=== PATIENT | female | born 1995 | race African-American/Black ===

== ENCOUNTER 2023-12-09 14:09 | Emergency (ER) | payer OTHER, SELFPAY ==
[2023-12-09 14:11] VITALS: BP 138/83; PULSE 88; RESP 18; TEMP 36.5; O2SAT 100
[2023-12-09 14:41] VITALS: BP 148/82; PULSE 85; RESP 18; O2SAT 100
--- NOTE | 2023-12-09 14:45 | ED.GENADULT ---
HPI - General Adult General Chief complaint: Unspecified Stated complaint: double dosed meds, accidently Time Seen by Provider: 12/09/23 14:20 History of Present Illness HPI narrative: 28-year-old female presents for evaluation after she took an extra dose of her lithium this morning. Patient takes 450 mg of lithium every morning and at night. She mistakenly took a 2nd dose of both her lithium and bupropion. Overall patient feels well and this was not an attempt at self-harm. Related Data Allergies Allergy/AdvReac Type Severity Reaction Status Date / Time No Known Allergies Allergy Verified 12/09/23 14:46 Review of Systems Review of Systems: Gen.: Denies fevers or chills Eyes: Denies eye pain or visual change ENT: Denies congestion Respiratory: Denies shortness of breath or cough CV: Denies chest pain or palpitations GI: Denies abdominal pain nausea, emesis or diarrhea denies burning, urgency, frequency or hematuria Musculoskeletal: Denies back pain or muscle pain Neuro: Denies numbness, tingling, weakness or focal weakness Skin: Denies rash Except as documented, all other systems reviewed and negative Exam Narrative: GENERAL: Well-appearing, well-nourished, and in no acute distress. HEAD: Normocephalic, atraumatic. EYES: PERRLA and EOMI. ENT: Nares clear, no rhinorrhea or epistaxis. Mucous membranes moist. NECK: Supple. CHEST: Clear to auscultation. No respiratory distress. HEART: Regular rate and rhythm. No murmur heard. Normal peripheral pulses. ABDOMEN: Soft, nontender, nondistended, normal active bowel sounds. EXTREMITIES: Normal range of motion. No edema. SKIN: Warm, dry, no rash. NEURO: No focal deficits. Alert and oriented x3. PSYCH: Normal mood and affect. Course Vital Signs Vital signs: Vital Signs Temperature 97.7 F 12/09/23 14:11 Pulse Rate 88 12/09/23 14:11 Respiratory Rate 18 12/09/23 14:11 Blood Pressure 138/83 12/09/23 14:11 Pulse Oximetry 100 12/09/23 14:11 Oxygen Delivery Room Air 12/09/23 14:11 Temperature 97.7 F 12/09/23 14:11 Pulse Rate 68 12/09/23 15:53 Respiratory Rate 15 12/09/23 15:53 Blood Pressure 148/82 H 12/09/23 14:41 Pulse Oximetry 100 12/09/23 15:53 Oxygen Delivery Room Air 12/09/23 14:11 Medical Decision Making MDM Narrative Medical decision making narrative: 28-year-old female presents to our department after taking an extra 450 mg of lithium. [place] level ordered [place] level is within normal reference range. Patient feels well and stable for DC home. Vital Signs Vital Signs: Vital Signs Temperature 97.7 F 12/09/23 14:11 Pulse Rate 88 12/09/23 14:11 Respiratory Rate 18 12/09/23 14:11 Blood Pressure 138/83 12/09/23 14:11 Pulse Oximetry 100 12/09/23 14:11 Oxygen Delivery Room Air 12/09/23 14:11 Temperature 97.7 F 12/09/23 14:11 Pulse Rate 68 12/09/23 15:53 Respiratory Rate 15 12/09/23 15:53 Blood Pressure 148/82 H 12/09/23 14:41 Pulse Oximetry 100 12/09/23 15:53 Oxygen Delivery Room Air 12/09/23 14:11 Lab Data Labs: Lab Results 12/09/23 Range/Units 15:13 [place] 0.8 (0.6-1.2) mmol/L Discharge Plan Discharge Clinical Impression: Accidental drug ingestion Patient Disposition: Home, Self-Care Condition: Stable Instructions: Antibiotic Form Additional Instructions: Return to the ER if you have any concerns about her health. Follow-up/Referrals: PHYSICIAN,CITY ATTORNEY [Primary Care Provider] - Time of Disposition: 16:46
--- NOTE | 2023-12-09 14:52 | ECG_ITS ---
SEE SCANNED COPY FOR CONFIRMED REPORT MTDD
[2023-12-09 15:50] LABS: Lithium 0.8 mmol/L (0.6-1.2)
[2023-12-09 15:53] VITALS: PULSE 68; RESP 15; O2SAT 100
--- NOTE | 2023-12-09 16:57 | ED.GENADULT ---
HPI - General Adult General Chief complaint: Unspecified Stated complaint: double dosed meds, accidently Time Seen by Provider: 12/09/23 14:20 History of Present Illness HPI narrative: 28-year-old female presents for evaluation after accidentally taking a double dose Related Data Allergies Allergy/AdvReac Type Severity Reaction Status Date / Time No Known Allergies Allergy Verified 12/09/23 14:46 Course Vital Signs Vital signs: Vital Signs Temperature 97.7 F 12/09/23 14:11 Pulse Rate 88 12/09/23 14:11 Respiratory Rate 18 12/09/23 14:11 Blood Pressure 138/83 12/09/23 14:11 Pulse Oximetry 100 12/09/23 14:11 Oxygen Delivery Room Air 12/09/23 14:11 Temperature 97.7 F 12/09/23 14:11 Pulse Rate 68 12/09/23 15:53 Respiratory Rate 15 12/09/23 15:53 Blood Pressure 148/82 H 12/09/23 14:41 Pulse Oximetry 100 12/09/23 15:53 Oxygen Delivery Room Air 12/09/23 14:11 Medical Decision Making Vital Signs Vital Signs: Vital Signs Temperature 97.7 F 12/09/23 14:11 Pulse Rate 88 12/09/23 14:11 Respiratory Rate 18 12/09/23 14:11 Blood Pressure 138/83 12/09/23 14:11 Pulse Oximetry 100 12/09/23 14:11 Oxygen Delivery Room Air 12/09/23 14:11 Temperature 97.7 F 12/09/23 14:11 Pulse Rate 68 12/09/23 15:53 Respiratory Rate 15 12/09/23 15:53 Blood Pressure 148/82 H 12/09/23 14:41 Pulse Oximetry 100 12/09/23 15:53 Oxygen Delivery Room Air 12/09/23 14:11 Lab Data Labs: Lab Results 12/09/23 Range/Units 15:13 [place] 0.8 (0.6-1.2) mmol/L Discharge Plan Discharge Clinical Impression: Accidental drug ingestion Patient Disposition: Home, Self-Care Condition: Stable Instructions: Antibiotic Form Additional Instructions: Return to the ER if you have any concerns about her health. Follow-up/Referrals: PHYSICIAN,CRIMINAL JUSTICE TEACHER [Primary Care Provider] - Time of Disposition: 16:46
[2023-12-09 17:00] VITALS: BP 154/94; PULSE 80; RESP 18; O2SAT 98
== END 2023-12-09 17:03 | disposition home or self-care (01) ==
PROVIDERS: Emergency Provider Emergency Medicine
DX: T56.891A Toxic effect of other metals, accidental (unintentional), initial encounter (principal)
CPT/HCPCS: 36415; 80178; 93005; 99283